=== PATIENT | male | born 1975 | race Caucasian/White ===

== ENCOUNTER 2018-12-12 17:38 | Emergency (ER) | payer BC, OTHER ==
--- OUTSIDE RECORDS SUMMARY | 2018-12-12 18:28 | XMS REPORT | Continuity of Care Document ---
:1975 External Reference #:[id number] Author Name LUIS ALBERTO Truong (transmitted by agent of provider Braxton Reeves) Address [address] [place] [address] Care Team Providers Name Role Phone Randall Joiner MD - Care Team Information Coning Machine Operator [phone] Cardiovascular Disease Chitra Tran PA - Physician Interior Design Program Chair Care Team Information Coning Machine Operator [phone] Thiago Quiroz MD - Nephrology Care Team Information Coning Machine Operator [phone] Sancho Bella MD - Cardiovascular Care Team Information Coning Machine Operator Disease Dudley Villarreal MD - Otolaryngology Care Team Information Coning Machine Operator Problems Active Problems Provider Date Sprain of joint Onset: 04/09/2012 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 Epilepsy, not refractory Onset: 04/09/2012 Lipoma (clinical) Onset: 04/09/2012 Skin sensation disturbance Onset: 04/09/2012 Malaise and fatigue Onset: 04/09/2012 Anxiety state Onset: 04/09/2012 Gastroesophageal reflux disease Onset: 04/09/2012 Benign essential hypertension Onset: 04/09/2012 Impotence LUIS ALBERTO Truong Onset: 08/15/2018 Social History Type Date Description Comments Sex Unknown Tobacco Use Start: Unknown Never Smoked Cigarettes Smoking Status Reviewed: 12/10/18 Never Smoked Cigarettes ETOH Use Rarely consumes alcohol Tobacco Use Start: 03/25/89 Patient is a former End: 03/25/13 smoker Recreational Drug Use Never Used Drugs past rehab etoh, cannibas and speed age 18yrs Exercise Type/Frequency Exercises regularly 3- 4 times per week Tattoo/Piercing Tattoo Upper sleeve on arm Allergies, Adverse Reactions, Alerts Description No Known Drug Allergies Medications Active Medications SIG Qnty Indications Ordering Date Provider Vitamin D3 Complete 1,000units a day Ethan 08/13/2018 MD Mahsa Tablets Escitalopram Oxalate 1 by mouth every 90tabs F41.9 Ethan 11/15/2016 10mg day,needs appt MD Mahsa Tablets for further refills Omeprazole 1 by mouth every 90caps K21.0 Ethan 03/28/2015 20mg Capsules day MD REINA Bragg Oxcarbazepine one every day 90tabs Ethan 600mg MD Mahsa Tablets Ventolin HFA 2 puffs every 6 18units LUIS ALBERTO Truong 108(90Base) hours as needed mcg/Act Aerosol for wheezing Immunizations Description No Information Available Vital Signs Date Vital Result Comment 12/10/2018 2:28pm Weight 225.44 lb BP Systolic Sitting 124 mmHg BP Diastolic Sitting 74 mmHg 08/13/2018 12:59pm Height 75 inches 6'3" Weight 235.56 lb BP Systolic Sitting 124 mmHg BP Diastolic Sitting 70 mmHg BMI (Body Mass Index) 29.4 kg/m2 Results Description No Information Available Procedures Description No Information Available Medical Devices Description No Information Available Encounters Type Date Location Provider Dx Diagnosis Office Visit 08/13/2018 [facility] LUIS ALBERTO Truong K21.9 Gastro- esophageal 1:00p reflux disease without esophagitis G40.89 Other seizures J45.909 Unspecified asthma, uncomplicated F52.21 Male erectile disorder I10 Essential (primary) hypertension E78.5 Hyperlipidemia, unspecified Assessments Date Code Description Provider 12/10/2018 Z00.01 Encounter for general adult medical examination with LUIS ALBERTO Truong abnormal findings 12/10/2018 J45.998 Other asthma LUIS ALBERTO Truong 12/10/2018 I10 Essential (primary) hypertension LUIS ALBERTO Truong 12/10/2018 J30.89 Other allergic rhinitis LUIS ALBERTO Truong 12/10/2018 G40.89 Other seizures LUIS ALBERTO Truong 12/10/2018 K21.9 Gastro-esophageal reflux disease without esophagitis LUIS ALBERTO Truong 08/13/2018 K21.9 Gastro-esophageal reflux disease without esophagitis LUIS ALBERTO Truong 08/13/2018 G40.89 Other seizures LUIS ALBERTO Truong 08/13/2018 J45.909 Unspecified asthma, uncomplicated LUIS ALBERTO Truong 08/13/2018 F52.21 Male erectile disorder LUIS ALBERTO Truong 08/13/2018 I10 Essential (primary) hypertension LUIS ALBERTO Truong 08/13/2018 E78.5 Hyperlipidemia, unspecified LUIS ALBERTO Truong Plan of Treatment Future Appointment(s):04/08/2019 3:15 pm - LUIS ALBERTO Truong at [facility] - BENI Truong00.01 Encounter for general adult medical examination with abnormal avlrtsazH75.998 Other asthmaReferral:No Doctor [id number] Essential (primary) axdrojksiuemR12.89 Other allergic dwbjefeqX62.89 Other xmhlfvlcE59.9 Gastro-esophageal reflux disease without esophagitisReferral:No Doctor Selected Functional Status Description No Information Available Mental Status Description No Information Available Referrals Refer to Dr Reason for Referral Status Appt Date Created Created
[2018-12-12 18:36] VITALS: BP 135/89
[2018-12-12] MEDS ORDERED: Tetan/Diph/Pertus SYR(Tdap)* 0.5 ML SYR(BOOSTRIX) use SYR IM ONE (18:50)
--- NOTE | 2018-12-12 19:00 | UC ---
Lower Extremity/Ankle HPI - HPI Summary HPI Summary: 43-year-old male comes in with a chief complaint of right great toe injury. Just prior to arrival he was in gym and he actually dropped a weight onto his right great toe. He did have socks and shoes on. There is some bleeding from the base of the toenail. Does give him pain with ambulation. He is out of date on his tetanus. No complaint of any weakness or numbness. He did scrape down his left belle but he states is not worried about that injury. - History of Current Complaint Chief Complaint: UCLaceration Stated Complaint: RIGHT GREAT TOE INJURY Time Seen by Provider: 12/12/18 18:47 Pain Intensity: 2 - Allergies/Home Medications Allergies/Adverse Reactions: Allergies Allergy/AdvReac Type Severity Reaction Status Date / Time No Known Allergies Allergy Verified 12/12/18 18:36 Home Medications: Home Medications Escitalopram Oxalate [Lexapro 10 mg] 10 mg PO DAILY 12/12/18 [History Confirmed 12/12/18] Omeprazole CAP (NF) [Prilosec CAP* 20 MG] 20 mg PO DAILY 12/12/18 [History Confirmed 12/12/18] PMH/Surg Hx/FS Hx/Imm Hx Previously Healthy: Yes GI/ History: Gastroesophageal Reflux - Surgical History Surgical History: None - Family History Known Family History: Positive: Non-Contributory - Social History Alcohol Use: Occasionally Substance Use Type: None Smoking Status (MU): Former Smoker When Did the Patient Quit Smoking/Using Tobacco: 05/2011 - Immunization History Most Recent Influenza Vaccination: 2012 Most Recent Tetanus Shot: unknown Review of Systems All Other Systems Reviewed And Are Negative: Yes Constitutional: Positive: Negative Skin: Positive: Other - see hpi Eyes: Positive: Negative ENT: Positive: Negative Respiratory: Positive: Negative Cardiovascular: Positive: Negative Gastrointestinal: Positive: Negative Motor: Positive: Negative Neurovascular: Positive: Negative Musculoskeletal: Positive: Other: - see hpi Neurological: Positive: Negative Psychological: Positive: Negative Is Patient Immunocompromised?: No Physical Exam Triage Information Reviewed: Yes Appearance: Well-Appearing, No Pain Distress, Well-Nourished Vital Signs: Initial Vital Signs Temp 98.1 F 12/12/18 18:32 Pulse 86 12/12/18 18:32 Resp 15 12/12/18 18:32 BP 135/89 12/12/18 18:32 Pulse Ox 100 09/20/19 18:32 Vital Signs Reviewed: Yes Eye Exam: Normal Eyes: Positive: Conjunctiva Clear Neck: Positive: Supple Respiratory: Positive: No respiratory distress Musculoskeletal: Positive: Other: - Right great toe is erythematous. And tender to palpation the dorsum.There is ecchymosis of the dorsum of the right great toe. Normal capillary refill no sensation deficit there is bleeding from the base of the toenail. There is a subungual hematoma. Neurological: Positive: Alert Psychological: Positive: Age Appropriate Behavior Skin: Positive: Other - There is ecchymosis of the dorsum of the right great toe. Normal capillary refill no sensation deficit there is bleeding from the base of the toenail. There is a subungual hematoma. Lower Extremity Course/Dx - Course Course Of Treatment: I discussed the x-rays with the patient and his . I do not see any fracture radiologist reading is pending. The bleeding is coming from under the nail there is no way to suture or use skin adhesive so therefore direct pressure dressing was placed by nursing patient rest intact after patient of the pressure dressing. Plan will be to change the dressing once or twice a day using anabolic ointment to avoid infection. Patient and a postop shoe in clinic by nursing patient and her rescue intact after placement of postop shoe. And also crutches. Weightbearing as tolerated. Follow-up with orthopedics if not completely improved or if the radiologist sees fracture. Reevaluate sooner if worse or any questions concerns. Patient given a TD Here in clinic today. - Differential Dx/Diagnosis Provider Diagnosis: Contusion of great toe of right foot, Subungual hematoma of great toe of right foot Discharge ED - Sign-Out/Discharge Documenting (check all that apply): Patient Departure All imaging exams completed and their final reports reviewed: No - Discharge Plan Condition: Stable Disposition: HOME Prescriptions: Mupirocin 1 applic TOPICAL BID #22 gm Patient Education Materials: Subungual Hematoma (ED), Foot Contusion (ED) Referrals: Chitra Tran PA [Primary Care Provider] - Melecio Don MD [Medical Doctor] - Additional Instructions: FOLLOW UP WITH ORTHOPEDICS, DR DON, IF NOT COMPLETELY IMPROVED. GET RECHECKED SOONER IF YOUR CONDITION WORSENS OR ANY QUESTIONS OR CONCERNS. - Billing Disposition and Condition Condition: STABLE Disposition: Home
--- NOTE | 2018-12-13 10:44 | UC ---
- Progress Note Progress Note: Final radiologist reading of the right great toe from December 12, 2018 comes back as no fracture. Provider interpretation as the same date is the same therefore there is no discrepancy. Course/Dx - Diagnoses Provider Diagnoses: Contusion of great toe of right foot, Subungual hematoma of great toe of right foot Discharge ED - Sign-Out/Discharge Documenting (check all that apply): Patient Departure All imaging exams completed and their final reports reviewed: Yes - Discharge Plan Condition: Stable Disposition: HOME Prescriptions: Mupirocin 1 applic TOPICAL BID #22 gm Patient Education Materials: Subungual Hematoma (ED), Foot Contusion (ED) Referrals: Chitra Tran PA [Primary Care Provider] - Melecio Don MD [Medical Doctor] - Additional Instructions: FOLLOW UP WITH ORTHOPEDICS, DR DON, IF NOT COMPLETELY IMPROVED. GET RECHECKED SOONER IF YOUR CONDITION WORSENS OR ANY QUESTIONS OR CONCERNS. - Billing Disposition and Condition Condition: STABLE Disposition: Home
== END 2018-12-12 19:54 | disposition home or self-care (01) ==
LOC: UCCORT 17:38
DX: S90.211A Contusion of right great toe with damage to nail, initial encounter (principal); W20.8XXA Other cause of strike by thrown, projected or falling object, initial encounter; Y92.89 Other specified places as the place of occurrence of the external cause; K21.9 Gastro-esophageal reflux disease without esophagitis; Z87.891 Personal history of nicotine dependence
CPT/HCPCS: 90471; 90715; 99203; G0463